=== PATIENT | female | born 1980 | race Caucasian/White ===

== ENCOUNTER 2018-12-26 13:02 | Emergency (ER) | payer BC, OTHER | END 2018-12-26 13:35 | disposition left against medical advice (07) | LOC: MW.ED 13:02 | DX: Z53.21 Procedure and treatment not carried out due to patient leaving prior to being seen by health care provider (principal) ==

== ENCOUNTER 2019-08-07 11:23 | Emergency (ER) | payer BC, SELFPAY ==
[2019-08-07] MEDS ORDERED: HYDROmorphone 1 MG/ML Syringe IM ONE (11:36)
[2019-08-07] MEDS ORDERED: HYDROmorphone 1 MG/ML Syringe ONE (11:39)
--- NOTE | 2019-08-07 11:52 | EDM.PDOC ---
ED HPI GENERAL MEDICAL PROBLEM - General Chief Complaint: Back Pain or Injury Stated Complaint: LOWER BACK PAIN Time Seen by Provider: 08/07/19 11:24 Source of Information: Reports: Patient History Limitations: Reports: No Limitations - History of Present Illness INITIAL COMMENTS - FREE TEXT/NARRATIVE: HISTORY AND PHYSICAL: History of present illness: Patient is a 38-year-old female who presents to the emergency room with complaints of lumbar back pain. She states that she went to bed last evening with mild back discomfort but was able to sleep through the night. Woke up in the morning with severe low back pain that was not alleviated with ambulation. She states she has voided and had a bowel movement; both were "normal". Believes she may have "over did it on the house work yesterday". She denies any trauma, injury, or recent falls. Denies any numbness, weakness, saddle paresthesias or weakness. Patient denies any fever, chills, headache, change in vision, syncope or near syncope. Denies any chest pain, back pain, shortness of breath or cough. Denies any GI or symptoms. Review of systems: As per history of present illness and below otherwise all systems reviewed and negative. Past medical history: As per history of present illness and as reviewed below otherwise noncontributory. Surgical history: As per history of present illness and as reviewed below otherwise noncontributory. Social history: See social history for further information Family history: As per history of present illness and as reviewed below otherwise noncontributory. Physical exam: General: Well-developed and well-nourished 38-year-old female. Alert and oriented. Nontoxic-appearing and in no acute distress. HEENT: Atraumatic, normocephalic, pupils equal and reactive bilaterally, negative for conjunctival pallor or scleral icterus, mucous membranes moist, TMs normal bilaterally, throat clear, neck supple, nontender, trachea midline. No drooling or trismus noted. No meningeal signs. No hot potato voice noted. Lungs: Clear to auscultation, breath sounds equal bilaterally, chest nontender. Heart: S1S2, regular rate and rhythm without overt murmur Abdomen: Soft, nondistended, nontender. Negative for masses or hepatosplenomegaly. Negative for costovertebral tenderness. Pelvis: Stable nontender. C-spine/Back: No pinpoint vertebral tenderness upon palpation. No crepitus, step -offs or obvious deformities. Paraspinous muscular tenderness to low lumbar region bilaterally. Patient is ambulatory into the emergency room, slowly but without difficulty or deficit. Able to rock back on heels and walk on toes. Denies any urinary or fecal incontinence. Denies any numbness, tingling or saddle paresthesia. Skin: Intact, warm, dry. No lesions or rashes noted. Extremities: Atraumatic, moves all extremities per self without difficulty or deficits, pain with muscular involvement of lumbar region. SEE BACK. She is negative for cords or calf pain. Neurovascular unremarkable. Neuro: Awake, alert, oriented. Cranial nerves II through XII unremarkable. Cerebellum unremarkable. Motor and sensory unremarkable throughout. Exam nonfocal. Notes: Patient states pain has improved to 5/10 from a 10/10. After x-ray was obtained , states her pain is back up and requesting additional medications. VSS. X-ray shows mild scoliosis. Posterior disc space narrowing at L5 and S1. Mild increased stool within the colon. No additional abnormalities are identified. This appears muscular in nature. Patient states she feels better. She has been up ambulating in the room without assistance. Able to get in and out of the bed without difficulty. We discussed signs and symptoms that would prompt her to return to the ED. Medication, follow up and supportive care measures were reviewed and discussed. Voices understanding and is agreeable to plan of care. Denies any further questions or concerns at this time. Diagnostics: Lumbar x-ray Therapeutics: Dilaudid, Toradol, Flexeril Prescription: Flexeril, Ultram Impression: Acute Lumbar Back Pain Plan: 1. The medication you received today does cause drowsiness, so do not drive for the remaining day 2. When resting please lay on a flat firm surface. Limit your immobility to prevent muscle stiffness. Get up to ambulate/move around/gentle stretching multiple times throughout the day. May alternate heat and ice to the painful areas 3. Tylenol as needed for back pain. Otherwise take the prescribed Flexeril and Tramadol as directed. Please take Ibuprofen 800mg with food TID with with Flexeril as we discussed. Flexeril as a muscle relaxant, this medication may cause drowsiness a do not take it will driving her needing to be functioning outside of the house. Tramadol for breakthrough pain. 4. Please follow-up with your primary care provider as we discussed. Return to the ED as needed and as discussed. Definitive disposition and diagnosis as appropriate pending reevaluation and review of above. Onset Date: 08/06/19 Location: Reports: Back Bilateral lower back Pain Score (Numeric/FACES): 10 - Related Data Allergies Allergy/AdvReac Type Severity Reaction Status Date / Time No Known Allergies Allergy Verified 08/07/19 11:35 Home Meds: Home Meds Levothyroxine 175 mcg PO ACBREAKFAST 12/26/18 [History] Past Medical History HEENT History: Reports: None Cardiovascular History: Reports: None Respiratory History: Reports: Asthma Other Respiratory History: as child Gastrointestinal History: Reports: None Genitourinary History: Reports: None [employer] History: Reports: , Spontaneous , Other (See Below) Other INS[employer] AND [employer] History: C/S x 4, placenta previa and acreta with current Musculoskeletal History: Reports: None Neurological History: Reports: None Psychiatric History: Reports: Anxiety Endocrine/Metabolic History: Reports: Hypothyroidism Hematologic History: Reports: Anemia Immunologic History: Reports: None Oncologic (Cancer) History: Reports: None Dermatologic History: Reports: None - Infectious Disease History Infectious Disease History: Reports: None - Past Surgical History Head Surgeries/Procedures: Reports: None HEENT Surgical History: Reports: None Cardiovascular Surgical History: Reports: None Respiratory Surgical History: Reports: None GI Surgical History: Reports: None Female Surgical History: Reports: Hysterectomy Endocrine Surgical History: Reports: None Neurological Surgical History: Reports: None Musculoskeletal Surgical History: Reports: None Oncologic Surgical History: Reports: None Dermatological Surgical History: Reports: None Social & Family History - Family History Family Medical History: Unobtainable - Tobacco Use Smoking Status *Q: Never Smoker Second Hand Smoke Exposure: No - Caffeine Use Caffeine Use: Reports: None - Recreational Drug Use Recreational Drug Use: No ED ROS GENERAL - Review of Systems Review Of Systems: Comprehensive ROS is negative, except as noted in HPI. ED EXAM,LOWER BACK PAIN/INJURY - Physical Exam Exam: See Below (See dictation) Course - Vital Signs Last Recorded V/S: Last Vital Signs Temp 97.5 F 08/07/19 11:34 Pulse 87 08/07/19 11:34 Resp 20 08/07/19 11:34 BP 108/90 08/07/19 11:34 Pulse Ox 98 08/07/19 11:34 Orthostatic Blood Pressure [ 112/74 Standing] Orthostatic Blood Pressure [ 113/67 Sitting] Orthostatic Blood Pressure [ 104/80 Supine] - Orders/Labs/Meds Orders: Active Orders 24 hr Category Date Time Status Orthostatic Vital Signs [RC] ASDIRECTED Care 08/07/19 12:01 Active Meds: Medications Discontinued Medications Generic Name Dose Route Start Last Admin Trade Name Ursula PRN Reason Stop Dose Admin Cyclobenzaprine HCl 10 mg 08/07/19 12:11 08/07/19 12:17 Flexeril PO 08/07/19 12:12 10 mg ONETIME ONE Administration Hydromorphone HCl 1 mg 08/07/19 11:36 08/07/19 11:40 Dilaudid IM 08/07/19 11:37 1 mg ONETIME ONE Administration Hydromorphone HCl Confirm 08/07/19 11:39 08/07/19 11:43 Dilaudid Administered 08/07/19 11:40 Not Given Dose 1 mg .ROUTE .STK-MED ONE Ketorolac Tromethamine 60 mg 08/07/19 12:11 08/07/19 12:16 Toradol IM 08/07/19 12:12 60 mg ONETIME ONE Administration Departure - Departure Time of Disposition: 12:40 Disposition: Home, Self-Care 01 Clinical Impression: Acute lumbar back pain Qualifiers: Back pain laterality: bilateral Sciatica presence: without sciatica Qualified Code(s): M54.5 - Low back pain - Discharge Information Instructions: Acute Back Pain, Adult Referrals: Nils Morales MD [Primary Care Provider] - Forms: ED Department Discharge Additional Instructions: The following information is given to patients seen in the emergency department who are being discharged to home. This information is to outline your options for follow-up care. We provide all patients seen in our emergency department with a follow-up referral. The need for follow-up, as well as the timing and circumstances, are variable depending upon the specifics of your emergency department visit. If you don't have a primary care physician on staff, we will provide you with a referral. We always advise you to contact your personal physician following an emergency department visit to inform them of the circumstance of the visit and for follow-up with them and/or the need for any referrals to a consulting specialist. The emergency department will also refer you to a specialist when appropriate. This referral assures that you have the opportunity for follow-up care with a specialist. All of these measure are taken in an effort to provide you with optimal care, which includes your follow-up. Under all circumstances we always encourage you to contact your private physician who remains a resource for coordinating your care. When calling for follow-up care, please make the office aware that this follow-up is from your recent emergency room visit. If for any reason you are refused follow-up, please contact the [facility] at and asked to speak to the emergency department charge nurse. [facility] [address] [place] [id number] [address] 1. The medication you received today does cause drowsiness, so do not drive for the remaining day 2. When resting please lay on a flat firm surface. Limit your immobility to prevent muscle stiffness. Get up to ambulate/move around/gentle stretching multiple times throughout the day. May alternate heat and ice to the painful areas 3. Tylenol as needed for back pain. Otherwise take the prescribed Flexeril and Tramadol as directed. Please take Ibuprofen 800mg with food TID with with Flexeril as we discussed. Flexeril as a muscle relaxant, this medication may cause drowsiness a do not take it will driving her needing to be functioning outside of the house. Tramadol for breakthrough pain. 4. Please follow-up with your primary care provider as we discussed. Return to the ED as needed and as discussed. Sepsis Event Note - Evaluation Sepsis Screening Result: No Definite Risk - Focused Exam Vital Signs: Vital Signs Temp Pulse Resp BP Pulse Ox 08/07/19 11:34 97.5 F 87 20 108/90 98 Date Exam was Performed: 08/07/19 Time Exam was Performed: 12:50 - My Orders Last 24 Hours: My Active Orders 08/07/19 12:01 Orthostatic Vital Signs [RC] ASDIRECTED - Assessment/Plan Last 24 Hours: My Active Orders 08/07/19 12:01 Orthostatic Vital Signs [RC] ASDIRECTED
[2019-08-07] MEDS ORDERED: Ketorolac 60 MG/2 ML SDV IM ONE (12:11)
[2019-08-07] MEDS ORDERED: Cyclobenzaprine 10 MG Tab PO ONE (12:11)
--- NOTE | 2019-08-07 12:21 | CR ---
Lumbar spine: AP, lateral and coned-down lateral view centered to the lumbosacral junction were obtained. Moderate posterior disc space narrowing is noted at L5-S1. Other disc spaces are maintained. Vertebral body heights are maintained. Mild scoliosis is present. Pedicles as well as transverse and spinous processes are intact. Mild increased stool is noted within the colon. Impression: 1. Mild scoliosis. Posterior disc space narrowing at L5-S1. 2. Mild increased stool within the colon. 3. No additional abnormality is identified. Diagnostic code #2 Study was dictated in MDT
== END 2019-08-07 12:55 | disposition home or self-care (01) ==
LOC: MW.ED 11:23
DX: M54.5 Low back pain (principal); E03.9 Hypothyroidism, unspecified
CPT/HCPCS: 72100; 96372; 99283; A9270; J1170; J1885